=== PATIENT | male | born 1990 | race African-American/Black ===

== ENCOUNTER 2024-07-16 06:57 | Emergency (ER) | payer SELFPAY ==
[2024-07-16 07:00] VITALS: BP 162/99
--- NOTE | 2024-07-16 07:31 | ED.GENMED ---
History of Present Illness
General
Chief Complaint: Abdominal Pain
Source: patient
Time Seen by Provider: 07/16/24 07:18
History of Present Illness
History of Present Illness:
33-year-old male presents to the emergency room because he is concerned he may have been exposed to a sexually transmitted disease. Patient states he had unprotected sex couple days ago. Since then he has been very anxious that he could have been
exposed to an STD. He did have chlamydia many years ago. He does not have any penile discharge. He does not have any dysuria. He has not noticed any wounds or lesions in the genital area.
Phy Exam
Physical Exam
Physical Exam:
General: Awake, Alert, Oriented X3. No acute distress.
Vitals: unremarkable
Head: Atraumatic
Eyes: Pupils equal, EOMI
Throat: Airway intact, no exudates
Neck: Trachea midline
Lungs: Clear and equal b/l
Heart: Regular rate, no murmurs
Abd: Soft, Nontender, No pulsatile mass
Genitalia: Normal-appearing circumcised genitalia. No wounds or lesions noted. No testicular tenderness to palpation. No penile discharge noted
Neuro: Nonfocal
Skin: Warm, dry, no rash
Extremities: pulses equal b/l, no edema
Course
Orders/Labs/Results
Orders:
Orders
07/16/24 07:30
Doxycycline [Vibramycin] 100 mg PO NOW STA
07/16/24 07:51
Chlamydia/GC by PCR Urgent
ESPERANZA Source: Urine
Specimen Description:
Source:: URINE
Date Specimen was Collected: 07/16/24
Time Specimen was Collected: 07:48
07/16/24 08:00
Ceftriaxone Sodium [Rocephin] 500 mg Intramuscular Injection 0 ml IM ONCE
07/16/24 07:03
07/16/24 07:03
Vital Signs
Initial and Last Documented VS:
Initial Vital Signs
Temp Pulse Resp BP Pulse Ox
97.8 F 70 18 162/99 98
07/16/24 07:00 07/16/24 07:00 07/16/24 07:00 07/16/24 07:00 07/16/24 07:00
Last Documented Vital Signs
Temp Pulse Resp BP Pulse Ox
98.2 F 61 18 135/86 100
07/16/24 08:18 07/16/24 08:18 07/16/24 08:18 07/16/24 08:18 07/16/24 08:18
MDM/Problems Addressed
Differential Diagnosis Includes:
Exposure to gonorrhea, exposure to chlamydia or other STD
MDM/Problems Addressed:
Patient denies actually having abdominal pain. He did not feel comfortable telling triage the true reason was here in the emergency room. Patient has no physical exam or symptomatic findings to suggest he is currently infected with an STD but
given his concern we will empirically treat with Rocephin and Doxy. Instructed patient that he needs to follow-up with a primary care provider or clinic for HIV testing. Patient stable for discharge home.
*Pulse Oximetry
Patient hypoxic: no
*Critical Care Note
Total Time (30-74mins, 75-104mins- exclusive of procedures): Not Applicable
ED Attending Note
-
Portions of this chart may have been created with voice recognition software.� Occasional wrong word or��sound alike� substitutions may have occurred due to the inherent limitations of voice recognition software.
Discharge Plan
Departure
Patient Disposition: Home (Routine Discharge)
Date of Disposition: 07/16/24
Time of Disposition: 07:34
Patient with high blood pressure during this ER visit?: Yes
Condition: Good
Discharge Problem:
Possible exposure to STD
Instructions: Sexually transmitted infections - ED discharge instructions, BLOOD PRESSURE
Prescriptions:
New
doxycycline monohydrate 100 mg capsule
100 mg PO BID Qty: 14 0RF
Activity Restrictions/Additional Instructions:
Please follow-up with your primary care doctor in a week or 2. We are not set up to do HIV screening. Your primary care provider should perform HIV screening.
Interventions
Interventions:
*Risk Screen - Suicide Last Done: 07/16/24 07:00
*General Assessment Last Done: 07/16/24 07:00
*Neglect/Abuse Screening Last Done: 07/16/24 07:00
*ED- Fall Risk Assessment Last Done: 07/16/24 07:34
*ED COVID-19 Vaccine History Last Done: 07/16/24 07:34
*Nursing Disposition Last Done: 07/16/24 08:18
ZB-Rrhyoe-Cwgsnzohnj Assessment Last Done: 07/16/24 07:34
Discharge Date and Time
Discharge Date/Time: 07/16/24 08:19
Print Language: ROMANIAN
[2024-07-16 07:34] VITALS: BMI 27.4
[2024-07-16] MEDS: VIBRAMYCIN 100 MG PO (07:51)
[2024-07-16] MEDS: ROCEPHIN 1.4286 MG IM (08:09)
--- NOTE | 2024-07-16 08:16 | EDRN ---
Reviewed discharge instructions with patient. Verbalized understanding. Ambulated with steady gait to the lobby.
[2024-07-16 08:18] VITALS: BP 135/86
== END 2024-07-16 08:19 | disposition home or self-care (01) ==
LOC: EMR 06:57
PROVIDERS: EMERGENCY PHYSICIAN Emergency Medicine
DX: Z20.2 Contact with and (suspected) exposure to infections with a predominantly sexual mode of transmission (principal)
CPT/HCPCS: 99282; 96372; 87491; 87591